=== PATIENT | female | born 1990 | race Asian ===

== ENCOUNTER → 2017-04-08 | Outpatient (CLI) | payer OTHER ==
--- NOTE | 2017-04-08 15:21 | REP ---
Clinical: Anatomical evaluation. Comparison: None . Findings: Examination demonstrates a single live intrauterine in cephalic presentation. motion is identified by technologist. Placenta is noted posteriorly and grade zero without evidence for placenta previa or abruption. Amniotic fluid volume is normal. Cervix measures 3.6 cm in length and appears closed. No evidence for nuchal cord. Gestational age by LMP 19 weeks 0 days with JONATHAN 09/02/2017 . Gestational age by current measurements 19 weeks 4 days with JONATHAN 08/29/2017 . FHR equals 141 beats per minute. BPD 4.6 cm 19 weeks 5 days HC 16.5 cm 19 weeks 1 day AC 14.0 cm 19 weeks 3 days FL 3.0 cm 19 weeks 3 days HL 3.0 cm 20 weeks 0 days HC/AC ratio 1.18 Estimated weight 290 grams ( 62nd percentile). Anatomical assessment demonstrates normal structures including cranium, choroid plexus, cavum, cerebellum/posterior fossa, facial features, lungs, four-chamber heart/ventricular outflow tracts, diaphragm, stomach, cord insertion/three-vessel cord, kidneys/bladder, spine, and extremities. Echogenic focus in the left cardiac ventricle likely prominent chordae tendineae. Impression: Single live intrauterine in cephalic presentation demonstrating appropriate interval growth. Anatomical assessment is complete and essentially normal. Signed by Arun Vasquez MD 04/08/2017 03:13 P
== END ==
LOC: M RAD 14:03
PROVIDERS: ATTEND Advanced Practice Midwife
DX: Z34.80 Encounter for supervision of other normal pregnancy, unspecified trimester (principal)

== ENCOUNTER → 2017-05-27 | Outpatient (CLI) | payer OTHER ==
[2017-05-27 17:03] LABS: BASO % 0.5 % (0.0-1.0); EOS # 0.1 K/mm3 (0.0-0.50); EOS % 0.8 % (0.0-3.0); LARGE UNSTAINED CELL # 0.2 K/mm3 (0.0-0.4); LARGE UNSTAINED CELL % 1.7 % (0.0-4.0); LYMPH # 2.2 K/mm3 (1.5-6.5); LYMPH % 20.6 % (24.0-44.0); MEAN CORPUSCULAR HEMOGLOBIN 32.1 pg (27.0-33.0); MEAN CORPUSCULAR HGB CONC 33.8 g/dl (32.0-36.5); MONO # 0.5 K/mm3 (0.0-0.8); MONO % 4.6 % (0.0-5.0); NEUTROPHILS # 7.1 K/mm3 (1.8-7.7); NEUTROPHILS % 71.8 % (36.0-66.0); PLATELET COUNT, AUTOMATED 140 k/mm3 (150-450); RED CELL DISTRIBUTION WIDTH 13.9 % (11.5-14.5); WHITE BLOOD COUNT 9.9 K/mm3 (4.0-10.0)
== END ==
LOC: M SMT 13:03
PROVIDERS: ATTEND Advanced Practice Midwife
DX: Z34.82 Encounter for supervision of other normal pregnancy, second trimester (principal)

== ENCOUNTER 2017-09-04 05:37 | Inpatient (IN) | payer OTHER, MEDICAID ==
[~2017-09-04] VITALS: Ht 157.5 cm; Wt 80.9 kg
[2017-09-04] VITALS (51 sets, daily range): BP systolic 81–129; BP diastolic 45–86
[2017-09-04 07:21] LABS: MEAN CORPUSCULAR HEMOGLOBIN 32.4 pg (27.0-33.0); MEAN CORPUSCULAR HGB CONC 34.8 g/dl (32.0-36.5); PLATELET COUNT, AUTOMATED 134 10^3/uL (150-450); RED CELL DISTRIBUTION WIDTH 13.7 % (11.5-14.5); WHITE BLOOD COUNT 9.9 10^3/uL (4.0-10.0)
[2017-09-04] MEDS ORDERED: PRENTAB9 PO (07:26)
[2017-09-04 07:34] LABS: METHADONE URINE NEGATIVE (NEGATIVE)
[2017-09-04] MEDS ORDERED: LR 1,000 ML IV SCH ×2 (09:43→19:12)
[2017-09-04] MEDS ORDERED: LACTATED RINGER'S 1000 ML IV STA (09:43)
[2017-09-04] MEDS ORDERED: FENTANYL 2MCG/ML ROPIVACAINE 0.2% IN 0.9% NACL 200ML IVBAG As Ordered ONE (09:55)
[2017-09-04] MEDS ORDERED: ePHEDrine SULFATE 25 MG/5 ML(5MG/ML) SYRINGE IV PRN (11:15)
[2017-09-04] MEDS ORDERED: diphenhydrAMINE INJ 50MG/ML VIAL (J1200) IV PRN (11:15)
[2017-09-04] MEDS ORDERED: FENTANYL/ROPIVACAINE/NACL BAG 200 ML EPIDURAL SCH (11:15)
[2017-09-04] MEDS ORDERED: EPIDURAL/PCA KEYS XX PRN (11:15)
[2017-09-04] MEDS ORDERED: REFRIGERATOR IV KEYS XX PRN (11:15)
[2017-09-04] MEDS ORDERED: EPIDURAL COMMENT XX SCH (11:15)
[2017-09-04] MEDS ORDERED: NALOXONE INJ 0.4 MG/1 ML VIAL (J2310) IV PRN (11:15)
[2017-09-04] MEDS ORDERED: ONDANSETRON 4MG/2ML VIAL (J2405) IV PRN ×2 (11:15→19:15)
[2017-09-04] MEDS ORDERED: OXYTOCIN DRIP 30 UNITS in APPROPRIATE DILUENT 1 EA IV SCH ×2 (12:30→19:12)
[2017-09-04] MEDS ORDERED: PROMETHAZINE 25 MG TAB PO PRN (19:15)
[2017-09-04] MEDS ORDERED: DIBUCAINE 1% OINTMENT 30GM TOP PRN (19:15)
[2017-09-04] MEDS ORDERED: ACETAMINOPHEN 500 MG TAB PO PRN (19:15)
[2017-09-04] MEDS ORDERED: RHOGAM 300 MCG (1500 IU) INJ (J2790) IM SCH (19:15)
[2017-09-04] MEDS ORDERED: METHYLERGONOVINE MALEATE 0.2 MG TAB PO PRN (19:15)
[2017-09-04] MEDS ORDERED: MEASLES,MUMPS,RUBELLA VACCINE INJ (MMR-II) (90707) SC SCH (19:15)
[2017-09-04] MEDS ORDERED: DOCUSATE SODIUM 100 MG CAP PO PRN (19:15)
[2017-09-04] MEDS: IBUPROFEN 800 MG TAB PO PRN (19:54)
[2017-09-04] MEDS: CEFOTETAN DISODIUM 2 GM in APPROPRIATE DILUENT 1 EA IV SCH (19:54)
[2017-09-05 02:47] VITALS: BP 92/53
[2017-09-05 05:57] VITALS: BP 112/59
[2017-09-05] MEDS: IBUPROFEN 800 MG TAB PO PRN ×2 (06:03→20:59)
[2017-09-05 06:23] LABS: MEAN CORPUSCULAR HEMOGLOBIN 32.6 pg (27.0-33.0); MEAN CORPUSCULAR HGB CONC 34.9 g/dl (32.0-36.5); MEAN CORPUSCULAR VOLUME 93.4 fl (80.0-96.0); PLATELET COUNT, AUTOMATED 113 10^3/uL (150-450); WHITE BLOOD COUNT 13.5 10^3/uL (4.0-10.0)
[2017-09-05 07:31] VITALS: BP 106/66
[2017-09-05] MEDS: CEFOTETAN DISODIUM 2 GM in APPROPRIATE DILUENT 1 EA IV SCH ×2 (08:45→20:58)
[2017-09-05] MEDS: PRENATAL VITAMINS CHEWABLE TABLET PO SCH (08:46)
[2017-09-05 09:53] VITALS: BP 128/63
[2017-09-05 17:39] VITALS: BP 111/59
[2017-09-06 05:58] VITALS: BP 118/64
[2017-09-06] MEDS ORDERED: ACET50TA PO (07:33)
[2017-09-06] MEDS ORDERED: IBUP-1114 PO (07:33)
[2017-09-06] MEDS: PRENATAL VITAMINS CHEWABLE TABLET PO SCH (09:39)
== END 2017-09-06 12:45 | disposition home or self-care (01) | DRG 560 ==
LOC: M LDO 05:37 → M LDI 06:36 → M OBS 09-05 09:51
PROVIDERS: ADMIT Obstetrics & Gynecology; ATTEND Obstetrics & Gynecology
PROC: 10E0XZZ Delivery of Products of Conception, External Approach (ICD-10-PCS; principal; 2017-09-04)
PROC: 0KQM0ZZ Repair Perineum Muscle, Open Approach (ICD-10-PCS; 2017-09-04)
DX: O48.0 Post-term pregnancy (principal); O70.1 Second degree perineal laceration during delivery; Z37.0 Single live birth; Z3A.40 40 weeks gestation of pregnancy

== ENCOUNTER 2017-09-19 04:55 | Emergency (ER) | payer MEDICAID, OTHER ==
[~2017-09-19] VITALS: Ht 162.6 cm; Wt 72.7 kg
[~2017-09-19 04:55] MED LIST: ACET50TA PO; IBUP-1114 PO; PRENTAB9 PO
[2017-09-19] MEDS ORDERED: IBUPROFEN 800 MG TAB PO ONE (06:30)
[2017-09-19] MEDS ORDERED: BREAMIS24 XX (08:20)
--- NOTE | 2017-09-19 08:47 | REP ---
ULTRASOUND RIGHT BREAST: Real-time sonographic evaluation of the right breast performed between 9-11 o'clock. There is reportedly a palpable abnormality at this location with tenderness. There is dense fibroglandular tissue. No fluid collection is seen. IMPRESSION: ACR 2 benign. No mass or fluid collection in the site of palpable abnormality. Signed by Boyd Paige MD 09/19/2017 05:53 P
[2017-09-19] MEDS ORDERED: KEFL500C17 PO (09:05)
[2017-09-19 09:43] VITALS: BP 116/68
== END 2017-09-19 09:45 | disposition home or self-care (01) ==
LOC: M ED 04:55
DX: O91.23 Nonpurulent mastitis associated with lactation (principal)

== ENCOUNTER → 2018-01-18 | Outpatient (REF) | payer OTHER | LOC: M LAB REF 13:22 | DX: R10.2 Pelvic and perineal pain (principal) | CPT/HCPCS: 87086 ==

== ENCOUNTER 2018-06-23 19:40 | Emergency (ER) | payer OTHER ==
[2018-06-23] MEDS: IBUPROFEN 600 MG TAB PO (23:48)
[2018-06-23] MEDS: dexameTHASONE 4 MG/ML 1ML VIAL (J1100) PO (23:49)
== END 2018-06-23 23:57 | disposition home or self-care (01) ==
LOC: M ED 19:40
DX: J02.9 Acute pharyngitis, unspecified (principal); J06.9 Acute upper respiratory infection, unspecified; H92.03 Otalgia, bilateral; Z79.899 Other long term (current) drug therapy
CPT/HCPCS: J1100